=== PATIENT | male | born 1945 | race Caucasian/White ===

== ENCOUNTER → 2023-03-26 | Outpatient (CLI) | payer MEDICARE ==
[2023-03-26 10:36] LABS: BASO # 0.1 10^3/uL (0.0-0.2); BASO % 1.2 % (0.0-1.0); EOS # 0.2 10^3/uL (0.0-0.5); EOS % 3.1 % (0.0-3.0); HEMOGLOBIN 13.9 g/dl (13.5-17.5); LYMPH # 1.1 10^3/uL (1.5-5.0); MEAN CORPUSCULAR HEMOGLOBIN 33.9 pg (27.0-33.0); MEAN CORPUSCULAR HGB CONC 32.3 g/dl (32.0-36.5); MEAN CORPUSCULAR VOLUME 104.9 fl (80.0-96.0); MONO # 0.7 10^3/uL (0.0-0.8); MONO % 14.2 % (2.0-8.0); NEUTROPHILS % 59.3 % (36.0-66.0); PLATELET COUNT, AUTOMATED 129 10^3/uL (150-450); WHITE BLOOD COUNT 5.1 10^3/uL (4.0-10.0)
[2023-03-26 10:57] LABS: ALBUMIN 3.2 G/DL (3.2-5.2); ALKALINE PHOSPHATASE 215 U/L (46-116); ALT/SGPT 38 U/L (7.0-40); AST/SGOT 48 U/L (<34); BILIRUBIN,TOTAL 1.2 MG/DL (0.3-1.2); BLOOD UREA NITROGEN 23 MG/DL (9-23); CALCIUM LEVEL 9.5 MG/DL (8.3-10.6); CARBON DIOXIDE LEVEL 27 MMOL/L (20-31); CHLORIDE LEVEL 106 MMOL/L (98-107); CHOLESTEROL LEVEL 160 MG/DL (<200); CHOLESTEROL RISK RATIO 2.08 (<5); CREATININE FOR GFR 1.21 MG/DL (0.70-1.30); GLOMERULAR FILTRATION RATE > 60.0 (>42); GLUCOSE, FASTING 189 MG/DL (74-106); HDL CHOLESTEROL 76.8 MG/DL (>40); LDL CHOLESTEROL 72.4 MG/DL (<100); NON-HDL-C 83.2 MG/DL; POTASSIUM SERUM 4.3 MMOL/L (3.5-5.1); SODIUM LEVEL 134 MMOL/L (136-145); TOTAL PROTEIN 7.4 G/DL (5.7-8.2); TRIGLYCERIDES LEVEL 54 MG/DL (<150)
[2023-03-26 10:59] LABS: THYROID STIMULATING HORMONE 7.479 uIU/ML (0.55-4.78)
[2023-03-26 11:07] LABS: CREATININE, URINE 106.3 MG/DL; CREATININE,RANDOM URINE 106.3 MG/DL; MAU/CREAT RATIO 41.3 MCG/MG (0.0-30.0)
[2023-03-26 11:16] LABS: HEMOGLOBIN A1c 7.9 % (4.0-6.0)
== END ==
LOC: M LAB 09:43
PROVIDERS: ATTEND Family Medicine
DX: E11.69 Type 2 diabetes mellitus with other specified complication (principal)

== ENCOUNTER → 2023-03-30 | Outpatient (CLI) | payer MEDICARE ==
[2023-03-30 15:30] LABS: BASO # 0.1 10^3/uL (0.0-0.2); BASO % 1.4 % (0.0-1.0); EOS # 0.2 10^3/uL (0.0-0.5); EOS % 3.8 % (0.0-3.0); HEMATOCRIT 40.6 % (42.0-52.0); HEMOGLOBIN 13.4 g/dl (13.5-17.5); LYMPH # 1.1 10^3/uL (1.5-5.0); LYMPH % 22.1 % (24.0-44.0); MEAN CORPUSCULAR HEMOGLOBIN 33.7 pg (27.0-33.0); MONO # 0.6 10^3/uL (0.0-0.8); MONO % 12.5 % (2.0-8.0); PLATELET COUNT, AUTOMATED 120 10^3/uL (150-450); RED BLOOD COUNT 3.98 10^6/uL (4.30-6.10)
[2023-03-30 15:54] LABS: LIPASE 33 U/L (12-53)
[2023-03-30 15:57] LABS: ALBUMIN 3.3 G/DL (3.2-5.2); ALKALINE PHOSPHATASE 189 U/L (46-116); ALT/SGPT 37 U/L (7.0-40); AST/SGOT 47 U/L (<34); BLOOD UREA NITROGEN 24 MG/DL (9-23); CALCIUM LEVEL 8.8 MG/DL (8.3-10.6); CARBON DIOXIDE LEVEL 26 MMOL/L (20-31); CHLORIDE LEVEL 106 MMOL/L (98-107); CREATININE FOR GFR 1.21 MG/DL (0.70-1.30); GLOMERULAR FILTRATION RATE > 60.0 (>42); GLUCOSE, FASTING 221 MG/DL (74-106); RHEUMATOID FACTOR QUANT < 3.5 IU/ML (<14); SODIUM LEVEL 138 MMOL/L (136-145); TOTAL PROTEIN 7.4 G/DL (5.7-8.2)
[2023-03-31 16:55] LABS: CRYOGLOBULINS NEGATIVE (NEGATIVE)
== END ==
LOC: M LAB 14:04
PROVIDERS: ATTEND Ophthalmology Retina Specialist
DX: H34.9 Unspecified retinal vascular occlusion (principal)

== ENCOUNTER → 2023-05-15 | Outpatient (CLI) | payer MEDICARE ==
[2023-05-15 11:33] LABS: FREE T3 2.9 PG/ML (2.3-4.2); FREE T4 0.8 NG/DL (0.89-1.76)
== END ==
LOC: M LAB 10:09
PROVIDERS: ATTEND Family Medicine
DX: E07.9 Disorder of thyroid, unspecified (principal)

== ENCOUNTER → 2023-07-23 | Outpatient (CLI) | payer MEDICARE ==
[~2023-07-23] MED LIST: AMLO25TA PO; FERR325T3 PO; FOLI1TAB11 PO; FURO20TA2 PO; LEVO50TA5 PO; METF-838 PO; PANT40TA29 PO; SPIR-10 PO; THIA100TA PO
[2023-07-23 15:34] LABS: BASO # 0.1 10^3/uL (0.0-0.2); EOS # 0.3 10^3/uL (0.0-0.5); EOS % 4.3 % (0.0-3.0); HEMOGLOBIN 10.2 g/dl (13.5-17.5); LYMPH # 1.2 10^3/uL (1.5-5.0); LYMPH % 20.2 % (24.0-44.0); MEAN CORPUSCULAR HEMOGLOBIN 27.5 pg (27.0-33.0); MEAN CORPUSCULAR HGB CONC 30.9 g/dl (32.0-36.5); MEAN CORPUSCULAR VOLUME 88.9 fl (80.0-96.0); MONO # 0.6 10^3/uL (0.0-0.8); MONO % 10.4 % (2.0-8.0); NEUTROPHILS # 3.9 10^3/uL (1.5-8.5); NEUTROPHILS % 63.8 % (36.0-66.0); PLATELET COUNT, AUTOMATED 159 10^3/uL (150-450); RED BLOOD COUNT 3.71 10^6/uL (4.30-6.10); WHITE BLOOD COUNT 6.1 10^3/uL (4.0-10.0)
[2023-07-23 15:47] LABS: APPEARANCE, URINE CLEAR (CLEAR); BACTERIA, URINE AUTO NEGATIVE (NEGATIVE); BILIRUBIN, URINE AUTO NEGATIVE (NEGATIVE); BLOOD, URINE BLOOD NEGATIVE (NEGATIVE); COLOR, URINE YELLOW (YELLOW); GLUCOSE, URINE (UA) AUTO NEGATIVE (NEGATIVE); KETONE, URINE AUTO NEGATIVE (NEGATIVE); LEUKOCYTE ESTERASE, URINE AUTO NEGATIVE (NEGATIVE); MUCUS, URINE SMALL (NEGATIVE); NITRITE, URINE AUTO NEGATIVE (NEGATIVE); PROTEIN, URINE AUTO NEGATIVE (NEGATIVE); RBC, URINE AUTO 0 /HPF (0-3); SPECIFIC GRAVITY URINE AUTO 1.019 (1.002-1.035); SQUAMOUS EPITHELIAL CELL UR AU 3 /HPF (0-6); UROBILINOGEN, URINE AUTO 0.2 mg/dL (0.0-2.0); WBC, URINE AUTO 2 /HPF (0-3)
[2023-07-23 15:51] LABS: TOTAL PROTEIN,RANDOM URINE 18.9 MG/DL (0.0-14.0)
[2023-07-23 15:55] LABS: CREATININE,RANDOM URINE 168.5 MG/DL
[2023-07-23 15:56] LABS: C REACTIVE PROTEIN QUANTITATIV < 0.40 MG/DL (<1.0)
[2023-07-23 15:57] LABS: CPK CREATINE PHOSPHOKINASE 106 U/L (46-171); LDH LACTATE DEHYDROGENASE 154 U/L (120-246)
[2023-07-23 15:58] LABS: ALKALINE PHOSPHATASE 174 U/L (46-116); ALT/SGPT 23 U/L (7.0-40); AST/SGOT 34 U/L (<34); BILIRUBIN,TOTAL 0.5 MG/DL (0.3-1.2); BLOOD UREA NITROGEN 26 MG/DL (9-23); CARBON DIOXIDE LEVEL 27 MMOL/L (20-31); CHLORIDE LEVEL 104 MMOL/L (98-107); COMPLEMENT C4 18.9 MG/DL (12-36); CREATININE FOR GFR 1.59 MG/DL (0.70-1.30); GLOMERULAR FILTRATION RATE 45.1 (>42); GLUCOSE, FASTING 185 MG/DL (74-106); POTASSIUM SERUM 4.3 MMOL/L (3.5-5.1); SODIUM LEVEL 139 MMOL/L (136-145); TOTAL PROTEIN 7.2 G/DL (5.7-8.2)
[2023-07-23 17:18] LABS: ERYTHROCYTE SEDIMENTATION RATE 55 mm/hr (0-20)
[2023-07-27 15:07] LABS: ALDOLASE 3.4 U/L (3.3-10.3); COMPLEMENT TOTAL (CH50) > 60 U/mL (>41)
== END ==
LOC: M LAB 14:34
PROVIDERS: ATTEND Internal Medicine Rheumatology
DX: R76.8 Other specified abnormal immunological findings in serum (principal); H35.9 Unspecified retinal disorder

== ENCOUNTER 2023-10-19 06:03 | Day surgery (SDC) | payer MEDICARE ==
[~2023-10-19] VITALS: Ht 180.3 cm; Wt 84.5 kg
[~2023-10-19 06:03] MED LIST changes: +CYCLOPENTOLATE 1% OPHTH SOLN 2ML BTL OD SCH; +FLURBIPROFEN 0.03% OPHTH SOLN 2.5 ML OD SCH; +PHENYLEPHRINE 2.5% OPHTH SOL 2ML OD SCH; +TETRACAINE 0.5% OPHTH SOLN 4ML OD SCH
[2023-10-19] MEDS ORDERED: LIDOCAINE 1% SDV 5ML VIAL As Ordered ONE (06:47)
[2023-10-19] MEDS ORDERED: CEFUROXIME 1MG/0.1ML INTRACAMERAL INJ As Ordered ONE (06:48)
[2023-10-19] MEDS ORDERED: LR 1,000 ML IV SCH (07:00)
[2023-10-19] MEDS ORDERED: MIDAZOLAM INJ 2MG/2ML VIAL As Ordered ONE (07:04)
[2023-10-19 08:08] VITALS: BP 143/66; TEMP 97.5; O2SAT 99
== END 2023-10-19 08:20 | disposition home or self-care (01) ==
LOC: M SDC 06:03
PROVIDERS: ATTEND Ophthalmology
DX: H25.11 Age-related nuclear cataract, right eye (principal); E11.9 Type 2 diabetes mellitus without complications; E03.9 Hypothyroidism, unspecified; K76.9 Liver disease, unspecified; Z79.899 Other long term (current) drug therapy; Z87.891 Personal history of nicotine dependence
CPT/HCPCS: 66984; J0697; J2250; V2632

== ENCOUNTER 2023-11-09 06:07 | Day surgery (SDC) | payer MEDICARE ==
[~2023-11-09] VITALS: Ht 180.3 cm; Wt 83.6 kg
[~2023-11-09 06:07] MED LIST changes: -CYCLOPENTOLATE 1% OPHTH SOLN 2ML BTL OD SCH; -FLURBIPROFEN 0.03% OPHTH SOLN 2.5 ML OD SCH; +LASI20TA3 PO; -PHENYLEPHRINE 2.5% OPHTH SOL 2ML OD SCH; -TETRACAINE 0.5% OPHTH SOLN 4ML OD SCH
[2023-11-09] MEDS: TETRACAINE 0.5% OPHTH SOLN 4ML OS SCH (06:58)
[2023-11-09] MEDS: PHENYLEPHRINE 2.5% OPHTH SOL 2ML OS SCH (06:58)
[2023-11-09] MEDS: FLURBIPROFEN 0.03% OPHTH SOLN 2.5 ML OS SCH (06:58)
[2023-11-09] MEDS: CYCLOPENTOLATE 1% OPHTH SOLN 2ML BTL OS SCH (06:59)
[2023-11-09] MEDS ORDERED: LR 1,000 ML IV SCH (07:00)
[2023-11-09] MEDS ORDERED: INSULIN LISPRO (NovoLOG) PER UNIT SC PRN (07:10)
[2023-11-09] MEDS: LIDOCAINE 1% SDV 5ML VIAL As Ordered ONE (07:33)
[2023-11-09] MEDS ORDERED: MIDAZOLAM 5MG/ML 1ML VIAL As Ordered ONE (07:37)
[2023-11-09] MEDS: CEFUROXIME 1MG/0.1ML INTRACAMERAL INJ As Ordered ONE (07:44)
[2023-11-09 07:55] VITALS: BP 142/70; TEMP 97.5; O2SAT 98
== END 2023-11-09 08:08 | disposition home or self-care (01) ==
LOC: M SDC 06:07
PROVIDERS: ATTEND Ophthalmology
DX: E11.36 Type 2 diabetes mellitus with diabetic cataract (principal); H25.12 Age-related nuclear cataract, left eye; E03.9 Hypothyroidism, unspecified; K74.60 Unspecified cirrhosis of liver; Z79.890 Hormone replacement therapy; Z79.899 Other long term (current) drug therapy
CPT/HCPCS: 66984; J0697; J2250; V2632

== ENCOUNTER → 2023-12-14 | Outpatient (CLI) | payer MEDICARE ==
[2023-12-14 08:03] LABS: BASO # 0.1 10^3/uL (0.0-0.2); BASO % 1.1 % (0.0-1.0); EOS # 0.2 10^3/uL (0.0-0.5); EOS % 4.2 % (0.0-3.0); HEMATOCRIT 35.7 % (42.0-52.0); HEMOGLOBIN 11.6 g/dl (13.5-17.5); LYMPH # 1.1 10^3/uL (1.5-5.0); LYMPH % 19.4 % (24.0-44.0); MEAN CORPUSCULAR HEMOGLOBIN 31.3 pg (27.0-33.0); MEAN CORPUSCULAR HGB CONC 32.5 g/dl (32.0-36.5); MEAN CORPUSCULAR VOLUME 96.2 fl (80.0-96.0); MONO # 0.7 10^3/uL (0.0-0.8); MONO % 12.5 % (2.0-8.0); NEUTROPHILS # 3.5 10^3/uL (1.5-8.5); NEUTROPHILS % 62.4 % (36.0-66.0); PLATELET COUNT, AUTOMATED 197 10^3/uL (150-450); RED BLOOD COUNT 3.71 10^6/uL (4.30-6.10); WHITE BLOOD COUNT 5.7 10^3/uL (4.0-10.0)
[2023-12-14 08:38] LABS: PERCENT SATURATION 12.3 % (19.7-50.0)
[2023-12-14 08:39] LABS: ALBUMIN 2.6 G/DL (3.2-5.2); BILIRUBIN,TOTAL 0.7 MG/DL (0.3-1.2); CREATININE FOR GFR 1.33 MG/DL (0.70-1.30); GLOMERULAR FILTRATION RATE 55.4 (>42); POTASSIUM SERUM 4.6 MMOL/L (3.5-5.1); TOTAL PROTEIN 6.9 G/DL (5.7-8.2)
[2023-12-14 08:40] LABS: FREE T4 0.93 NG/DL (0.89-1.76)
[2023-12-14 08:41] LABS: FERRITIN 22.9 NG/ML (10.5-307.3); FREE T3 2.6 PG/ML (2.3-4.2); THYROID STIMULATING HORMONE 4.465 uIU/ML (0.55-4.78)
[2023-12-14 09:24] LABS: HEMOGLOBIN A1c 7.5 % (4.0-6.0)
== END ==
LOC: M LAB 07:12
PROVIDERS: ATTEND Family Medicine
DX: D64.9 Anemia, unspecified (principal); E07.9 Disorder of thyroid, unspecified; E11.69 Type 2 diabetes mellitus with other specified complication

== ENCOUNTER → 2023-12-30 | Outpatient (CLI) | payer MEDICARE | LOC: M RAD 11:51 | PROVIDERS: ATTEND Internal Medicine Gastroenterology | DX: C83.81 Other non-follicular lymphoma, lymph nodes of head, face, and neck (principal) ==

== ENCOUNTER → 2024-01-07 | Outpatient (CLI) | payer MEDICARE | LOC: M WUC 15:12 | PROVIDERS: ATTEND Nurse Practitioner Family | DX: R07.82 Intercostal pain (principal); Z87.81 Personal history of (healed) traumatic fracture ==

== ENCOUNTER → 2024-01-25 | Outpatient (CLI) | payer MEDICARE ==
[~2024-01-25] MED LIST changes: +LIDOCAINE 1% MDV 20ML VIAL As Ordered ONE
[2024-01-25 09:15] VITALS: TEMP 97.7
[2024-01-25 10:48] VITALS: BP 138/64; O2SAT 98
== END ==
LOC: M IRPRO 09:04
PROVIDERS: ATTEND Otolaryngology
DX: R22.1 Localized swelling, mass and lump, neck (principal)

== ENCOUNTER → 2024-02-08 | Outpatient (CLI) | payer MEDICARE ==
[~2024-02-08] MED LIST changes: -LIDOCAINE 1% MDV 20ML VIAL As Ordered ONE
[2024-02-08 07:46] LABS: BASO % 0.6 % (0.0-1.0); EOS # 0.1 10^3/uL (0.0-0.5); EOS % 2.7 % (0.0-3.0); HEMATOCRIT 33.3 % (42.0-52.0); HEMOGLOBIN 10.8 g/dl (13.5-17.5); LYMPH # 0.7 10^3/uL (1.5-5.0); LYMPH % 14.4 % (24.0-44.0); MEAN CORPUSCULAR HEMOGLOBIN 30.9 pg (27.0-33.0); MEAN CORPUSCULAR HGB CONC 32.4 g/dl (32.0-36.5); MEAN CORPUSCULAR VOLUME 95.4 fl (80.0-96.0); MONO # 0.5 10^3/uL (0.0-0.8); MONO % 10.7 % (2.0-8.0); NEUTROPHILS # 3.4 10^3/uL (1.5-8.5); NEUTROPHILS % 71.4 % (36.0-66.0); PLATELET COUNT, AUTOMATED 194 10^3/uL (150-450); RED BLOOD COUNT 3.49 10^6/uL (4.30-6.10); WHITE BLOOD COUNT 4.8 10^3/uL (4.0-10.0)
[2024-02-08 07:52] LABS: APPEARANCE, URINE HAZY (CLEAR); BACTERIA, URINE AUTO 1+ (NEGATIVE); BILIRUBIN, URINE AUTO NEGATIVE (NEGATIVE); BLOOD, URINE BLOOD NEGATIVE (NEGATIVE); COLOR, URINE YELLOW (YELLOW); GLUCOSE, URINE (UA) AUTO NEGATIVE (NEGATIVE); KETONE, URINE AUTO NEGATIVE (NEGATIVE); LEUKOCYTE ESTERASE, URINE AUTO TRACE (NEGATIVE); NITRITE, URINE AUTO NEGATIVE (NEGATIVE); PROTEIN, URINE AUTO 1+ mg/dL (NEGATIVE); RBC, URINE AUTO 0 /HPF (0-3); SPECIFIC GRAVITY URINE AUTO 1.024 (1.002-1.035); SQUAMOUS EPITHELIAL CELL UR AU 6 /HPF (0-6); WBC, URINE AUTO 15 /HPF (0-3)
[2024-02-08 07:59] LABS: ERYTHROCYTE SEDIMENTATION RATE 76 mm/hr (0-20)
[2024-02-08 08:06] LABS: TOTAL PROTEIN,RANDOM URINE 47.4 MG/DL (0.0-14.0)
[2024-02-08 08:11] LABS: C REACTIVE PROTEIN QUANTITATIV 2.9 MG/DL (<1.0); CREATININE,RANDOM URINE 228.6 MG/DL
[2024-02-08 08:29] LABS: COMPLEMENT C4 23.6 MG/DL (12-36)
[2024-02-08 08:30] LABS: ALBUMIN 2.5 G/DL (3.2-5.2); BILIRUBIN,TOTAL 0.7 MG/DL (0.3-1.2); CALCIUM LEVEL 8.7 MG/DL (8.3-10.6); CREATININE FOR GFR 1.42 MG/DL (0.70-1.30); GLOMERULAR FILTRATION RATE 51.3 (>42); POTASSIUM SERUM 4.7 MMOL/L (3.5-5.1); TOTAL PROTEIN 6.9 G/DL (5.7-8.2)
== END ==
LOC: M LAB 07:04
PROVIDERS: ATTEND Internal Medicine Rheumatology
DX: R76.8 Other specified abnormal immunological findings in serum (principal); H35.9 Unspecified retinal disorder

== ENCOUNTER → 2024-02-22 | Outpatient (CLI) | payer MEDICARE ==
[2024-02-22 11:43] LABS: BASO # 0.1 10^3/uL (0.0-0.2); EOS # 0.1 10^3/uL (0.0-0.5); EOS % 2.1 % (0.0-3.0); HEMOGLOBIN 10.8 g/dl (13.5-17.5); LYMPH # 0.9 10^3/uL (1.5-5.0); MEAN CORPUSCULAR HEMOGLOBIN 30.6 pg (27.0-33.0); MEAN CORPUSCULAR HGB CONC 32.7 g/dl (32.0-36.5); MEAN CORPUSCULAR VOLUME 93.5 fl (80.0-96.0); MONO # 0.7 10^3/uL (0.0-0.8); NEUTROPHILS # 3.4 10^3/uL (1.5-8.5); NEUTROPHILS % 65.3 % (36.0-66.0); PLATELET COUNT, AUTOMATED 207 10^3/uL (150-450); RED BLOOD COUNT 3.53 10^6/uL (4.30-6.10); WHITE BLOOD COUNT 5.1 10^3/uL (4.0-10.0)
[2024-02-22 12:14] LABS: ALBUMIN 2.5 G/DL (3.2-5.2); BILIRUBIN,TOTAL 0.9 MG/DL (0.3-1.2); CALCIUM LEVEL 8.8 MG/DL (8.3-10.6); CREATININE FOR GFR 1.57 MG/DL (0.70-1.30); GLOMERULAR FILTRATION RATE 45.7 (>42); HEMOGLOBIN A1c 6.8 % (4.0-6.0); POTASSIUM SERUM 4.6 MMOL/L (3.5-5.1); TOTAL PROTEIN 7.1 G/DL (5.7-8.2)
== END ==
LOC: M EKG 11:02
PROVIDERS: ATTEND Family Medicine
DX: Z01.818 Encounter for other preprocedural examination (principal); I45.19 Other right bundle-branch block; R94.31 Abnormal electrocardiogram [ECG] [EKG]; Z79.899 Other long term (current) drug therapy

== ENCOUNTER 2024-03-03 06:08 | Day surgery (SDC) | payer MEDICARE ==
[~2024-03-03] VITALS: Ht 180.3 cm; Wt 79.7 kg
[2024-03-03] MEDS ORDERED: fentaNYL 100 MCG/2 ML INJECTION As Ordered ONE (06:54)
[2024-03-03] MEDS ORDERED: propofoL 200 MG/20 ML VIAL As Ordered ONE (06:55)
[2024-03-03] MEDS ORDERED: LR 1,000 ML IV SCH ×2 (07:05→08:40)
[2024-03-03] MEDS ORDERED: ROCURONIUM BROMIDE 50MG/5ML VIAL As Ordered ONE (07:21)
[2024-03-03] MEDS ORDERED: ePHEDrine SULFATE 25 MG/5 ML(5MG/ML) SYRINGE As Ordered ONE (07:48)
[2024-03-03] MEDS ORDERED: PHENYLephrine 500MCG 5ML (100MCG/ML) SYRINGE As Ordered ONE (08:04)
[2024-03-03] MEDS ORDERED: SUCCINYLCHOLINE 100MG/5ML SYRINGE As Ordered ONE (08:05)
[2024-03-03] MEDS ORDERED: LIDOCAINE 2% 100MG/5ML SDV (FOR ANES.) As Ordered ONE (08:09)
[2024-03-03] MEDS ORDERED: ONDANSETRON 4MG 2ML VIAL As Ordered ONE (08:09)
[2024-03-03] MEDS: BACITRACIN OINTMENT 30GM TUBE As Ordered ONE (08:21)
[2024-03-03] MEDS ORDERED: HYDROMORPHONE HCL 0.5 MG/ 0.5 ML SYRINGE IV PRN (08:40)
[2024-03-03] MEDS ORDERED: fentaNYL 100 MCG/2 ML INJECTION IV PRN (08:40)
[2024-03-03] MEDS ORDERED: oxyCODONE 5MG TAB PO PRN (08:40)
[2024-03-03] MEDS ORDERED: ONDANSETRON 4MG 2ML VIAL IV PRN (08:40)
[2024-03-03] MEDS: LIDOCAINE W/EPINEPHRINE 1% 20ML VIAL As Ordered ONE (08:44)
[2024-03-03 09:26] VITALS: BP 132/64; TEMP 97; O2SAT 99
== END 2024-03-03 09:42 | disposition home or self-care (01) ==
LOC: M SDC 06:08
PROVIDERS: ATTEND Otolaryngology
DX: C79.89 Secondary malignant neoplasm of other specified sites (principal); C61 Malignant neoplasm of prostate; E11.9 Type 2 diabetes mellitus without complications; E03.9 Hypothyroidism, unspecified; I10 Essential (primary) hypertension; Z79.899 Other long term (current) drug therapy; Z79.890 Hormone replacement therapy; K74.60 Unspecified cirrhosis of liver; Z87.891 Personal history of nicotine dependence
CPT/HCPCS: 21556; 88307; J0330; J1100; J2371; J2405; J3010

== ENCOUNTER → 2024-03-04 | Outpatient (REF) | payer MEDICARE ==
[2024-03-04 18:02] LABS: APPEARANCE, URINE CLEAR (CLEAR); BACTERIA, URINE AUTO NEGATIVE (NEGATIVE); BILIRUBIN, URINE AUTO NEGATIVE (NEGATIVE); BLOOD, URINE BLOOD NEGATIVE (NEGATIVE); COLOR, URINE YELLOW (YELLOW); GLUCOSE, URINE (UA) AUTO NEGATIVE (NEGATIVE); KETONE, URINE AUTO NEGATIVE (NEGATIVE); LEUKOCYTE ESTERASE, URINE AUTO NEGATIVE (NEGATIVE); NITRITE, URINE AUTO NEGATIVE (NEGATIVE); PROTEIN, URINE AUTO NEGATIVE (NEGATIVE); RBC, URINE AUTO 0 /HPF (0-3); SPECIFIC GRAVITY URINE AUTO 1.013 (1.002-1.035); SQUAMOUS EPITHELIAL CELL UR AU 0 /HPF (0-6); WBC, URINE AUTO 0 /HPF (0-3)
== END ==
LOC: M SFHCRHEU 12:14
PROVIDERS: ATTEND Internal Medicine Rheumatology
DX: R79.82 Elevated C-reactive protein (CRP) (principal); Z79.899 Other long term (current) drug therapy

== ENCOUNTER 2024-03-14 17:54 | Inpatient (IN) | payer MEDICARE ==
[~2024-03-14] VITALS: Ht 180.3 cm; Wt 72.2 kg
[2024-03-14 19:11] LABS: BASO # 0.1 10^3/uL (0.0-0.2); BASO % 0.8 % (0.0-1.0); EOS # 0.1 10^3/uL (0.0-0.5); EOS % 1.8 % (0.0-3.0); HEMATOCRIT 29.8 % (42.0-52.0); HEMOGLOBIN 9.9 g/dl (13.5-17.5); LYMPH # 0.8 10^3/uL (1.5-5.0); LYMPH % 12.9 % (24.0-44.0); MEAN CORPUSCULAR HEMOGLOBIN 30.5 pg (27.0-33.0); MEAN CORPUSCULAR HGB CONC 33.2 g/dl (32.0-36.5); MEAN CORPUSCULAR VOLUME 91.7 fl (80.0-96.0); MONO # 0.6 10^3/uL (0.0-0.8); MONO % 9.2 % (2.0-8.0); NEUTROPHILS # 4.6 10^3/uL (1.5-8.5); NEUTROPHILS % 75.1 % (36.0-66.0); PLATELET COUNT, AUTOMATED 226 10^3/uL (150-450); RED BLOOD COUNT 3.25 10^6/uL (4.30-6.10); WHITE BLOOD COUNT 6.1 10^3/uL (4.0-10.0)
[2024-03-14 19:19] LABS: INR 1.15; PROTHROMBIN TIME 14.4 SECONDS (12.5-14.5)
[2024-03-14 19:31] LABS: ALBUMIN 2.5 G/DL (3.2-5.2); BILIRUBIN,DIRECT 0.4 MG/DL (<0.4); BILIRUBIN,TOTAL 0.9 MG/DL (0.3-1.2); CALCIUM LEVEL 8.5 MG/DL (8.3-10.6); CREATININE FOR GFR 1.44 MG/DL (0.70-1.30); GLOMERULAR FILTRATION RATE 50.5 (>42); POTASSIUM SERUM 4.2 MMOL/L (3.5-5.1); TOTAL PROTEIN 7.2 G/DL (5.7-8.2)
[2024-03-14 19:32] LABS: ALBUMIN 2.5 G/DL (3.2-5.2); BILIRUBIN,DIRECT 0.4 MG/DL (<0.4); BILIRUBIN,TOTAL 0.8 MG/DL (0.3-1.2); TOTAL PROTEIN 7.2 G/DL (5.7-8.2)
[2024-03-14] MEDS ORDERED: THIA100TA PO (23:50)
[2024-03-14] MEDS ORDERED: FOLI1TAB11 PO (23:50)
[2024-03-14] MEDS ORDERED: HOME MED LIST COMPLETE! XX SCH (23:55)
[2024-03-15] VITALS (9 sets, daily range): BP systolic 94–150; BP diastolic 47–70; TEMP 97.3–97.7; O2SAT 96–99
[2024-03-15] MEDS: LEVOTHYROXINE 50MCG TABLET (0.05MG) PO SCH (05:38)
[2024-03-15] MEDS: SPIRONOLACTONE 25 MG TAB PO SCH (08:40)
[2024-03-15] MEDS: FOLIC ACID 1MG TAB PO SCH (08:41)
[2024-03-15] MEDS: FUROSEMIDE 20 MG TAB PO SCH (08:41)
[2024-03-15] MEDS: PANTOPRAZOLE 40MG TAB (PROTONIX) PO SCH (08:41)
[2024-03-15] MEDS: LACTULOSE 20GM/30ML SYRUP UDC PO SCH ×3 (08:41→13:29)
[2024-03-15] MEDS: THIAMINE 100 MG TAB PO SCH (08:42)
[2024-03-15 11:22] LABS: BASO % 0.8 % (0.0-1.0); EOS # 0.1 10^3/uL (0.0-0.5); EOS % 1.4 % (0.0-3.0); HEMATOCRIT 28.9 % (42.0-52.0); HEMOGLOBIN 9.5 g/dl (13.5-17.5); LYMPH # 0.6 10^3/uL (1.5-5.0); LYMPH % 11.4 % (24.0-44.0); MEAN CORPUSCULAR HEMOGLOBIN 29.9 pg (27.0-33.0); MEAN CORPUSCULAR HGB CONC 32.9 g/dl (32.0-36.5); MEAN CORPUSCULAR VOLUME 90.9 fl (80.0-96.0); MONO # 0.5 10^3/uL (0.0-0.8); MONO % 9.1 % (2.0-8.0); NEUTROPHILS # 3.9 10^3/uL (1.5-8.5); NEUTROPHILS % 76.9 % (36.0-66.0); PLATELET COUNT, AUTOMATED 206 10^3/uL (150-450); RED BLOOD COUNT 3.18 10^6/uL (4.30-6.10); WHITE BLOOD COUNT 5.1 10^3/uL (4.0-10.0)
[2024-03-15 11:45] LABS: CREATININE FOR GFR 1.32 MG/DL (0.70-1.30); GLOMERULAR FILTRATION RATE 55.8 (>42); POTASSIUM SERUM 4.3 MMOL/L (3.5-5.1)
[2024-03-15 15:33] LABS: APPEARANCE, BODY FLUID CLEAR (CLEAR); ASCITES FL COLOR YELLOW (COLORLESS); SOURCE, BODY FLUID ASCITES
[2024-03-15 19:25] LABS: SOURCE, BODY FLUID ALBUMIN ASCITES
[2024-03-15 19:30] LABS: SOURCE, BODY FLUID GLUCOSE ASCITES
[2024-03-15 19:32] LABS: SOURCE, BODY FLUID TOT PROTEIN ASCITES; TOTAL PROTEIN, BODY FLUID 2.3 G/DL (NOT ESTABLISHED)
[2024-03-16] VITALS (7 sets, daily range): BP systolic 88–115; BP diastolic 44–54; TEMP 97.3–97.5; O2SAT 97–100
[2024-03-16] MEDS: MIDODRINE 2.5 MG TAB PO ONE (04:53)
[2024-03-16 06:35] LABS: HEMATOCRIT 32.3 % (42.0-52.0); HEMOGLOBIN 10.7 g/dl (13.5-17.5); MEAN CORPUSCULAR HGB CONC 33.1 g/dl (32.0-36.5); MEAN CORPUSCULAR VOLUME 90.5 fl (80.0-96.0); PLATELET COUNT, AUTOMATED 235 10^3/uL (150-450); RED BLOOD COUNT 3.57 10^6/uL (4.30-6.10); WHITE BLOOD COUNT 5.9 10^3/uL (4.0-10.0)
[2024-03-16 06:47] LABS: ALBUMIN 2.7 G/DL (3.2-5.2); BILIRUBIN,TOTAL 1.2 MG/DL (0.3-1.2); CALCIUM LEVEL 8.7 MG/DL (8.3-10.6); CREATININE FOR GFR 1.29 MG/DL (0.70-1.30); GLOMERULAR FILTRATION RATE 57.3 (>42); POTASSIUM SERUM 4.3 MMOL/L (3.5-5.1); TOTAL PROTEIN 6.2 G/DL (5.7-8.2)
[2024-03-16] MEDS ORDERED: LACT20EL PO (10:19)
== END 2024-03-16 14:04 | disposition home or self-care (01) | DRG 433 ==
LOC: M ED 17:54 → M ED INP 03-15 00:33 → M MSPAV 03-15 01:31
PROVIDERS: ADMIT Preventive Medicine Undersea and Hyperbaric Medicine; ATTEND Internal Medicine Nephrology
PROC: 0W9G3ZZ Drainage of Peritoneal Cavity, Percutaneous Approach (ICD-10-PCS; principal; 2024-03-15 14:30)
DX: K74.60 Unspecified cirrhosis of liver (principal); R18.8 Other ascites; N18.30 Chronic kidney disease, stage 3 unspecified; E03.9 Hypothyroidism, unspecified; E11.22 Type 2 diabetes mellitus with diabetic chronic kidney disease; K72.90 Hepatic failure, unspecified without coma; C61 Malignant neoplasm of prostate; E11.319 Type 2 diabetes mellitus with unspecified diabetic retinopathy without macular edema; B18.2 Chronic viral hepatitis C; Z98.41 Cataract extraction status, right eye; Z98.42 Cataract extraction status, left eye; Z79.899 Other long term (current) drug therapy

== ENCOUNTER → 2024-03-24 | Outpatient (CLI) | payer MEDICARE ==
[~2024-03-24] MED LIST changes: +DARO300T PO; +GASTROGRAFIN SOLUTION 30ML As Ordered ONE; +ISOVUE-370 76% 100ML VIAL As Ordered ONE; +LACT20EL PO
== END ==
LOC: M RAD 15:26
PROVIDERS: ATTEND Specialist
DX: C61 Malignant neoplasm of prostate (principal); C79.51 Secondary malignant neoplasm of bone; R91.1 Solitary pulmonary nodule; R59.0 Localized enlarged lymph nodes
CPT/HCPCS: 71260; 74177; Q9963; Q9967

== ENCOUNTER 2024-04-04 07:46 | Inpatient (IN) | payer MEDICARE ==
[~2024-04-04] VITALS: Ht 180.3 cm; Wt 80.0 kg
[~2024-04-04 07:46] MED LIST changes: -GASTROGRAFIN SOLUTION 30ML As Ordered ONE; -ISOVUE-370 76% 100ML VIAL As Ordered ONE
[2024-04-04 10:48] LABS: HEMATOCRIT 33.6 % (42.0-52.0); HEMOGLOBIN 11.4 g/dl (13.5-17.5); MEAN CORPUSCULAR HEMOGLOBIN 29.5 pg (27.0-33.0); MEAN CORPUSCULAR HGB CONC 33.9 g/dl (32.0-36.5); MEAN CORPUSCULAR VOLUME 86.8 fl (80.0-96.0); PLATELET COUNT, AUTOMATED 153 10^3/uL (150-450); RED BLOOD COUNT 3.87 10^6/uL (4.30-6.10)
[2024-04-04 10:50] LABS: INR 1.39; PROTHROMBIN TIME 16.7 SECONDS (12.5-14.5)
[2024-04-04 11:00] LABS: ALBUMIN 1.9 G/DL (3.2-5.2); BILIRUBIN,DIRECT 0.8 MG/DL (<0.4); BILIRUBIN,TOTAL 1.4 MG/DL (0.3-1.2); CALCIUM LEVEL 7.8 MG/DL (8.3-10.6); CREATININE FOR GFR 4.38 MG/DL (0.70-1.30); POTASSIUM SERUM 5.8 MMOL/L (3.5-5.1); TOTAL PROTEIN 6.3 G/DL (5.7-8.2)
[2024-04-04 11:03] LABS: ANISOCYTOSIS 1+; ATYPICAL LYMPH 2 % (0-5); LYMPHOCYTES 8 % (16-44); MONOCYTES 5 % (0-5); NEUTROPHILS 85 % (28-66); PLATELET ESTIMATE NORMAL (NORMAL)
[2024-04-04] MEDS: PATIROMER SORBITEX CALCIUM 8.4 GM POWDER PACKET (VELTASSA) PO ONE (13:45)
[2024-04-04] MEDS ORDERED: MAALOX 30 ML SUSP *UDC PO PRN (13:55)
[2024-04-04] MEDS ORDERED: MOM 30ML SUSPENSION UDC PO PRN (13:55)
[2024-04-04] MEDS ORDERED: LACT20EL PO (14:03)
[2024-04-04] MEDS ORDERED: HOME MED LIST COMPLETE! XX SCH (14:05)
[2024-04-04] MEDS ORDERED: GLUCOSE 4 GM CHEW PO PRN (14:30)
[2024-04-04] MEDS ORDERED: GLUCAGON INJ 1MG VIAL SC PRN (14:30)
[2024-04-04] MEDS ORDERED: DEXTROSE 50% 50ML SYRINGE IV PRN (14:30)
[2024-04-04 15:07] VITALS: BP 134/70; TEMP 97.2; O2SAT 98
[2024-04-04 15:23] VITALS: BP 137/69; TEMP 97.2; O2SAT 98
[2024-04-04 15:45] LABS: C REACTIVE PROTEIN QUANTITATIV 24.6 MG/DL (<1.0)
[2024-04-04 15:51] VITALS: BP 128/71; TEMP 97.4; O2SAT 100
[2024-04-04 15:55] LABS: ERYTHROCYTE SEDIMENTATION RATE > 130 mm/hr (0-20)
[2024-04-04] MEDS: ALBUTEROL SULFATE 2.5MG/0.5ML INH NEB SOLN NEB ONE (15:55)
[2024-04-04] MEDS: LACTULOSE 20GM/30ML SYRUP UDC PO SCH (16:00)
[2024-04-04] MEDS: MIDODRINE 5 MG TAB PO SCH (16:00)
[2024-04-04] MEDS: cefTRIAXone SOD 2 GM in D5W MINI-BAG PLUS 50 ML IV SCH (16:43)
[2024-04-04] MEDS: INSULIN LISPRO (NovoLOG) PER UNIT SC SCH ×2 (18:25→20:06)
[2024-04-04 18:39] LABS: CALCIUM LEVEL 7.6 MG/DL (8.3-10.6); CREATININE FOR GFR 4.84 MG/DL (0.70-1.30); GLOMERULAR FILTRATION RATE 12.5 (>42); POTASSIUM SERUM 5.2 MMOL/L (3.5-5.1)
[2024-04-04 18:54] VITALS: BP 148/65; TEMP 98; O2SAT 100
[2024-04-04] MEDS: NS 1,000 ML IV SCH (19:52)
[2024-04-04 19:58] VITALS: BP 125/62; TEMP 97.6; O2SAT 98
[2024-04-04] MEDS: OCTREOTIDE ACETATE 100MCG/ML VIAL **SC ADMINISTRATION ONLY SC SCH (20:17)
[2024-04-04 23:45] LABS: APPEARANCE, URINE TURBID (CLEAR); BACTERIA, URINE AUTO 1+ (NEGATIVE); BILIRUBIN, URINE AUTO NEGATIVE (NEGATIVE); BLOOD, URINE BLOOD 3+ (NEGATIVE); COLOR, URINE AMBER (YELLOW); GLUCOSE, URINE (UA) AUTO NEGATIVE (NEGATIVE); KETONE, URINE AUTO NEGATIVE (NEGATIVE); LEUKOCYTE ESTERASE, URINE AUTO 3+ (NEGATIVE); NITRITE, URINE AUTO NEGATIVE (NEGATIVE); PROTEIN, URINE AUTO 3+ mg/dL (NEGATIVE); RBC, URINE AUTO 41 /HPF (0-3); SPECIFIC GRAVITY URINE AUTO 1.012 (1.002-1.035); SQUAMOUS EPITHELIAL CELL UR AU 1 /HPF (0-6); UROBILINOGEN, URINE AUTO 0.2 mg/dL (0.0-2.0); WBC, URINE AUTO TNTC /HPF (0-3)
[2024-04-04 23:56] LABS: SODIUM,RANDOM URINE 46 MMOL/L
[2024-04-05] VITALS (7 sets, daily range): BP systolic 104–136; BP diastolic 55–70; TEMP 96.4–98.6; O2SAT 95–99
[2024-04-05] MEDS: VANCOMYCIN HCL 750 MG, VIAL MATE ADAPTER 1 EACH in D5W 250 ML IV SCH (00:18)
[2024-04-05] MEDS ORDERED: VANCOMYCIN INTERMITTENT/PULSE DOSING BY CLINICAL PHARMACIST PER DOSING PROTOCOL XX SCH (02:00)
[2024-04-05 05:10] LABS: VANCOMYCIN RANDOM 23.9 UG/ML
[2024-04-05] MEDS: LEVOTHYROXINE 50MCG TABLET (0.05MG) PO SCH (05:42)
[2024-04-05 06:56] LABS: ALBUMIN 1.8 G/DL (3.2-5.2); BLOOD UREA NITROGEN 103 MG/DL (9-23); CALCIUM LEVEL 7.9 MG/DL (8.3-10.6); CARBON DIOXIDE LEVEL 19 MMOL/L (20-31); CHLORIDE LEVEL 94 MMOL/L (98-107); GLUCOSE, FASTING 303 MG/DL (74-106); POTASSIUM SERUM 5.5 MMOL/L (3.5-5.1); SODIUM LEVEL 123 MMOL/L (136-145)
[2024-04-05 07:01] LABS: BASO # 0.1 10^3/uL (0.0-0.2); BASO % 0.2 % (0.0-1.0); HEMATOCRIT 31.2 % (42.0-52.0); HEMOGLOBIN 10.6 g/dl (13.5-17.5); LYMPH # 1.9 10^3/uL (1.5-5.0); LYMPH % 8.2 % (24.0-44.0); MEAN CORPUSCULAR HEMOGLOBIN 29.3 pg (27.0-33.0); MEAN CORPUSCULAR VOLUME 86.2 fl (80.0-96.0); MONO # 0.7 10^3/uL (0.0-0.8); MONO % 2.9 % (2.0-8.0); NEUTROPHILS # 19.9 10^3/uL (1.5-8.5); NEUTROPHILS % 86.1 % (36.0-66.0); PLATELET COUNT, AUTOMATED 134 10^3/uL (150-450); RED BLOOD COUNT 3.62 10^6/uL (4.30-6.10); WHITE BLOOD COUNT 23.1 10^3/uL (4.0-10.0)
[2024-04-05 07:04] LABS: ALKALINE PHOSPHATASE 208 U/L (46-116); ALT/SGPT 14 U/L (7.0-40); AST/SGOT 24 U/L (<34); BILIRUBIN,TOTAL 1.3 MG/DL (0.3-1.2); CREATININE FOR GFR 5.21 MG/DL (0.70-1.30); GLOMERULAR FILTRATION RATE 11.5 (>42); MAGNESIUM LEVEL 2.3 MG/DL (1.8-2.4); TOTAL PROTEIN 5.7 G/DL (5.7-8.2)
[2024-04-05] MEDS: PANTOPRAZOLE 40MG TAB (PROTONIX) PO SCH (09:00)
[2024-04-05] MEDS: PIPERACILLIN/TAZOBACTAM SOD 4.5 GM in D5W MINI-BAG PLUS 50 ML IV SCH (09:01)
[2024-04-05] MEDS: HEPARIN SOD (PORCINE) 5000UNITS/ML 1ML VIAL/SYRINGE SC SCH (09:01)
[2024-04-05] MEDS: HumuLIN R (REGULAR) INSULIN (NovoLIN R) **100U/ML** PER UNIT IV STA (10:44)
[2024-04-05] MEDS ORDERED: HEPARIN 1,000UNITS/ML 10ML VIAL (FOR RADIOLOGY & DIALYSIS ONLY) IV PRN (11:20)
[2024-04-05] MEDS ORDERED: SODIUM CHLORIDE 0.9% 1000ML IV PRN (11:20)
[2024-04-05 12:06] LABS: HEPATITIS B SURFACE ANTIBODY NEGATIVE (POSITIVE)
[2024-04-05 12:18] LABS: HEPATITIS B SURFACE ANTIGEN NEGATIVE (NEGATIVE)
[2024-04-05 12:39] LABS: HEPATITIS B CORE ANTIBODY IGM NEGATIVE (NEGATIVE)
[2024-04-05 13:06] LABS: HEPATITIS C VIRUS ABY INDEX 2.06 INDEX (<0.8)
[2024-04-05] MEDS: HEPARIN 1,000UNITS/ML 10ML VIAL (FOR RADIOLOGY & DIALYSIS ONLY) XX SCH (15:59)
[2024-04-06] VITALS (33 sets, daily range): BP systolic 67–117; BP diastolic 38–58; TEMP 97.2–98.9; O2SAT 90–97
[2024-04-06 05:24] LABS: BASO % 0.2 % (0.0-1.0); EOS % 0.1 % (0.0-3.0); HEMATOCRIT 33.5 % (42.0-52.0); HEMOGLOBIN 11.2 g/dl (13.5-17.5); LYMPH # 1.3 10^3/uL (1.5-5.0); MEAN CORPUSCULAR HEMOGLOBIN 28.6 pg (27.0-33.0); MEAN CORPUSCULAR HGB CONC 33.4 g/dl (32.0-36.5); MEAN CORPUSCULAR VOLUME 85.7 fl (80.0-96.0); MONO # 0.7 10^3/uL (0.0-0.8); MONO % 3.6 % (2.0-8.0); NEUTROPHILS # 16.2 10^3/uL (1.5-8.5); NEUTROPHILS % 88.1 % (36.0-66.0); PLATELET COUNT, AUTOMATED 106 10^3/uL (150-450); RED BLOOD COUNT 3.91 10^6/uL (4.30-6.10); WHITE BLOOD COUNT 18.3 10^3/uL (4.0-10.0)
[2024-04-06 05:50] LABS: VANCOMYCIN RANDOM 13.9 UG/ML
[2024-04-06 05:51] LABS: CALCIUM LEVEL 7.3 MG/DL (8.3-10.6); CREATININE FOR GFR 4.27 MG/DL (0.70-1.30); GLOMERULAR FILTRATION RATE 14.4 (>42); MAGNESIUM LEVEL 2.2 MG/DL (1.8-2.4); POTASSIUM SERUM 4.7 MMOL/L (3.5-5.1)
[2024-04-06] MEDS ORDERED: HEPARIN 1,000UNITS/ML 10ML VIAL (FOR RADIOLOGY & DIALYSIS ONLY) IV PRN (06:00)
[2024-04-06] MEDS ORDERED: LIDOCAINE 1% SDV 5ML VIAL SC PRN (06:00)
[2024-04-06] MEDS ORDERED: SODIUM CHLORIDE 0.9% 1000ML IV PRN (06:00)
[2024-04-06] MEDS: VANCOMYCIN HCL 1,000 MG, VIAL MATE ADAPTER 1 EACH in D5W 250 ML IV ONE (06:01)
[2024-04-06] MEDS: HEPARIN 1,000UNITS/ML 10ML VIAL (FOR RADIOLOGY & DIALYSIS ONLY) XX SCH (11:23)
[2024-04-06] MEDS: ISOVUE-300 61% 100ML VIAL As Ordered ONE (12:50)
[2024-04-06] MEDS ORDERED: fentaNYL 100 MCG/2 ML INJECTION As Ordered ONE (13:13)
[2024-04-06] MEDS ORDERED: propofoL 200 MG/20 ML VIAL As Ordered ONE (13:15)
[2024-04-06] MEDS ORDERED: PHENYLephrine 500MCG 5ML (100MCG/ML) SYRINGE As Ordered ONE (13:15)
[2024-04-06] MEDS ORDERED: ePHEDrine SULFATE 25 MG/5 ML(5MG/ML) SYRINGE As Ordered ONE (13:15)
[2024-04-06] MEDS ORDERED: ONDANSETRON 4MG 2ML VIAL IV PRN (13:20)
[2024-04-06] MEDS ORDERED: oxyCODONE 5MG TAB PO PRN (13:20)
[2024-04-06] MEDS ORDERED: fentaNYL 100 MCG/2 ML INJECTION IV PRN (13:20)
[2024-04-06] MEDS: PIPERACILLIN/TAZOBACTAM SOD 4.5 GM in D5W MINI-BAG PLUS 50 ML IV SCH (14:23)
[2024-04-06] MEDS: LACTULOSE 20GM/30ML SYRUP UDC PO SCH (14:23)
[2024-04-06] MEDS: NS 1,000 ML IV SCH (14:26)
[2024-04-06] MEDS: NS 1,000 ML IV ONE (16:55)
[2024-04-06] MEDS: MIDODRINE 5 MG TAB PO SCH (17:22)
[2024-04-06] MEDS: LR 1,000 ML IV SCH (18:19)
[2024-04-06] MEDS: NOREPINEPHRINE 4MG IN D5 250ML 4 MG in IV 1 EA IV SCH (18:19)
[2024-04-06 23:33] LABS: HCV RNA QUANTITATION <15 NOT DETECTED IU/mL (NOT DETECTED); HCV RNA log10 <1.18 NOT DETECTED Log IU/mL (NOT DETECTED)
[2024-04-07] VITALS (93 sets, daily range): BP systolic 81–129; BP diastolic 44–73; TEMP 97.5–98.9; O2SAT 92–97
[2024-04-07 05:13] LABS: HEMATOCRIT 32.9 % (42.0-52.0); MEAN CORPUSCULAR HEMOGLOBIN 28.9 pg (27.0-33.0); MEAN CORPUSCULAR HGB CONC 33.4 g/dl (32.0-36.5); MEAN CORPUSCULAR VOLUME 86.6 fl (80.0-96.0); PLATELET COUNT, AUTOMATED 118 10^3/uL (150-450); WHITE BLOOD COUNT 27.8 10^3/uL (4.0-10.0)
[2024-04-07 05:30] LABS: CREATININE FOR GFR 3.56 MG/DL (0.70-1.30); GLOMERULAR FILTRATION RATE 17.8 (>42)
[2024-04-07 05:45] LABS: ATYPICAL LYMPH 1 % (0-5); LYMPHOCYTES 1 % (16-44); MONOCYTES 2 % (0-5); NEUTROPHILS 95 % (28-66); PLATELET ESTIMATE DECREASED (NORMAL)
[2024-04-07] MEDS ORDERED: HEPARIN 1,000UNITS/ML 10ML VIAL (FOR RADIOLOGY & DIALYSIS ONLY) IV PRN (06:00)
[2024-04-07] MEDS ORDERED: HEPARIN 1,000UNITS/ML 10ML VIAL (FOR RADIOLOGY & DIALYSIS ONLY) XX SCH (06:00)
[2024-04-07] MEDS ORDERED: LIDOCAINE 1% SDV 5ML VIAL SC PRN (06:00)
[2024-04-07] MEDS ORDERED: SODIUM CHLORIDE 0.9% 1000ML IV PRN (06:00)
[2024-04-07] MEDS: LR 1,000 ML IV SCH (09:58)
[2024-04-07] MEDS: NS 1,000 ML IV SCH (10:37)
[2024-04-07] MEDS: SODIUM CHLORIDE 0.9% 500 ML IV ONE (11:54)
[2024-04-07 11:58] LABS: CLOSTRIDIUM DIFFICILE PCR NEGATIVE (NEGATIVE)
[2024-04-07] MEDS: MIDODRINE 5 MG TAB PO SCH (12:39)
[2024-04-07] MEDS: cefTRIAXone SOD 2 GM in D5W MINI-BAG PLUS 50 ML IV SCH (16:37)
[2024-04-08] VITALS (43 sets, daily range): BP systolic 73–117; BP diastolic 47–63; TEMP 96.8–98.6; O2SAT 93–99
[2024-04-08 05:17] LABS: BASO % 0.1 % (0.0-1.0); EOS # 0.1 10^3/uL (0.0-0.5); EOS % 0.5 % (0.0-3.0); HEMATOCRIT 30.2 % (42.0-52.0); HEMOGLOBIN 10.2 g/dl (13.5-17.5); LYMPH # 0.6 10^3/uL (1.5-5.0); LYMPH % 3.3 % (24.0-44.0); MEAN CORPUSCULAR HEMOGLOBIN 28.9 pg (27.0-33.0); MEAN CORPUSCULAR HGB CONC 33.8 g/dl (32.0-36.5); MEAN CORPUSCULAR VOLUME 85.6 fl (80.0-96.0); MONO # 0.5 10^3/uL (0.0-0.8); MONO % 2.5 % (2.0-8.0); NEUTROPHILS # 17.8 10^3/uL (1.5-8.5); RED BLOOD COUNT 3.53 10^6/uL (4.30-6.10); WHITE BLOOD COUNT 19.2 10^3/uL (4.0-10.0)
[2024-04-08 05:42] LABS: PLATELET COUNT, AUTOMATED 98 10^3/uL (150-450)
[2024-04-08 05:53] LABS: CALCIUM LEVEL 6.7 MG/DL (8.3-10.6); CREATININE FOR GFR 4.37 MG/DL (0.70-1.30); POTASSIUM SERUM 4.1 MMOL/L (3.5-5.1)
[2024-04-08] MEDS ORDERED: HEPARIN 1,000UNITS/ML 10ML VIAL (FOR RADIOLOGY & DIALYSIS ONLY) IV PRN (09:25)
[2024-04-08] MEDS ORDERED: LIDOCAINE 1% SDV 5ML VIAL SC PRN (09:25)
[2024-04-08] MEDS ORDERED: SODIUM CHLORIDE 0.9% 1000ML IV PRN (09:25)
[2024-04-08] MEDS: ACETAMINOPHEN TAB 650MG DOSE (2X325MG) PO PRN (12:23)
[2024-04-08] MEDS: HEPARIN 1,000UNITS/ML 10ML VIAL (FOR RADIOLOGY & DIALYSIS ONLY) XX SCH (15:26)
[2024-04-08] MEDS ORDERED: LOPERAMIDE 2 MG CAPLET PO PRN (17:50)
[2024-04-09] VITALS (8 sets, daily range): BP systolic 90–136; BP diastolic 52–71; TEMP 97–97.9; O2SAT 96–97
[2024-04-09 06:17] LABS: BASO % 0.1 % (0.0-1.0); EOS # 0.1 10^3/uL (0.0-0.5); EOS % 0.4 % (0.0-3.0); HEMOGLOBIN 11.6 g/dl (13.5-17.5); LYMPH # 0.7 10^3/uL (1.5-5.0); LYMPH % 4.4 % (24.0-44.0); MEAN CORPUSCULAR HEMOGLOBIN 28.6 pg (27.0-33.0); MEAN CORPUSCULAR HGB CONC 33.1 g/dl (32.0-36.5); MEAN CORPUSCULAR VOLUME 86.4 fl (80.0-96.0); MONO # 0.4 10^3/uL (0.0-0.8); MONO % 2.6 % (2.0-8.0); NEUTROPHILS # 13.6 10^3/uL (1.5-8.5); NEUTROPHILS % 91.9 % (36.0-66.0); RED BLOOD COUNT 4.05 10^6/uL (4.30-6.10); WHITE BLOOD COUNT 14.8 10^3/uL (4.0-10.0)
[2024-04-09 06:18] LABS: PLATELET COUNT, AUTOMATED 97 10^3/uL (150-450)
[2024-04-09 06:41] LABS: ALBUMIN 1.3 G/DL (3.2-5.2); BILIRUBIN,TOTAL 2.3 MG/DL (0.3-1.2); CALCIUM LEVEL 6.9 MG/DL (8.3-10.6); CREATININE FOR GFR 3.49 MG/DL (0.70-1.30); GLOMERULAR FILTRATION RATE 18.2 (>42); MAGNESIUM LEVEL 1.9 MG/DL (1.8-2.4); POTASSIUM SERUM 4.2 MMOL/L (3.5-5.1); TOTAL PROTEIN 5.3 G/DL (5.7-8.2)
[2024-04-09] MEDS ORDERED: SODIUM CHLORIDE 0.9% 1000ML IV PRN (09:50)
[2024-04-09] MEDS ORDERED: HEPARIN 1,000UNITS/ML 10ML VIAL (FOR RADIOLOGY & DIALYSIS ONLY) XX SCH (09:50)
[2024-04-09] MEDS: HEPARIN 1,000UNITS/ML 10ML VIAL (FOR RADIOLOGY & DIALYSIS ONLY) IV PRN (13:26)
[2024-04-10 03:34] VITALS: BP 114/57; TEMP 97.1; O2SAT 97
[2024-04-10 07:30] LABS: BASO % 0.2 % (0.0-1.0); EOS % 0.3 % (0.0-3.0); HEMATOCRIT 34.3 % (42.0-52.0); HEMOGLOBIN 11.2 g/dl (13.5-17.5); LYMPH # 0.5 10^3/uL (1.5-5.0); LYMPH % 3.8 % (24.0-44.0); MEAN CORPUSCULAR HEMOGLOBIN 28.3 pg (27.0-33.0); MEAN CORPUSCULAR HGB CONC 32.7 g/dl (32.0-36.5); MEAN CORPUSCULAR VOLUME 86.6 fl (80.0-96.0); MONO # 0.4 10^3/uL (0.0-0.8); MONO % 3.3 % (2.0-8.0); NEUTROPHILS # 11.6 10^3/uL (1.5-8.5); NEUTROPHILS % 91.7 % (36.0-66.0); PLATELET COUNT, AUTOMATED 101 10^3/uL (150-450); RED BLOOD COUNT 3.96 10^6/uL (4.30-6.10); WHITE BLOOD COUNT 12.6 10^3/uL (4.0-10.0)
[2024-04-10 07:51] VITALS: BP 120/58; O2SAT 94
[2024-04-10 07:58] LABS: ALBUMIN 1.7 G/DL (3.2-5.2); BILIRUBIN,TOTAL 2.8 MG/DL (0.3-1.2); CALCIUM LEVEL 8.1 MG/DL (8.3-10.6); CREATININE FOR GFR 2.83 MG/DL (0.70-1.30); GLOMERULAR FILTRATION RATE 23.2 (>42); MAGNESIUM LEVEL 1.9 MG/DL (1.8-2.4); POTASSIUM SERUM 4.5 MMOL/L (3.5-5.1); TOTAL PROTEIN 5.7 G/DL (5.7-8.2)
[2024-04-10 11:22] VITALS: BP 111/59; TEMP 97.6; O2SAT 96
[2024-04-10] MEDS: FUROSEMIDE injection 250 MG in D5W 225 ML IV SCH (11:29)
[2024-04-10] MEDS ORDERED: FUROSEMIDE injection 250 MG in D5W 225 ML IV SCH (12:00)
[2024-04-10 16:27] VITALS: BP 120/58; TEMP 97; O2SAT 96
[2024-04-10 19:37] VITALS: BP 120/61; TEMP 97; O2SAT 97
[2024-04-10 23:40] VITALS: BP 118/56; TEMP 97.2; O2SAT 97
[2024-04-11] VITALS (8 sets, daily range): BP systolic 106–166; BP diastolic 51–61; TEMP 96.4–97; O2SAT 96–99
[2024-04-11 06:00] LABS: BASO % 0.1 % (0.0-1.0); EOS # 0.1 10^3/uL (0.0-0.5); EOS % 0.6 % (0.0-3.0); HEMATOCRIT 33.6 % (42.0-52.0); LYMPH # 0.6 10^3/uL (1.5-5.0); LYMPH % 5.6 % (24.0-44.0); MEAN CORPUSCULAR HEMOGLOBIN 28.4 pg (27.0-33.0); MEAN CORPUSCULAR HGB CONC 32.7 g/dl (32.0-36.5); MEAN CORPUSCULAR VOLUME 86.8 fl (80.0-96.0); MONO # 0.5 10^3/uL (0.0-0.8); MONO % 4.4 % (2.0-8.0); NEUTROPHILS # 9.1 10^3/uL (1.5-8.5); NEUTROPHILS % 88.7 % (36.0-66.0); PLATELET COUNT, AUTOMATED 104 10^3/uL (150-450); RED BLOOD COUNT 3.87 10^6/uL (4.30-6.10); WHITE BLOOD COUNT 10.2 10^3/uL (4.0-10.0)
[2024-04-11 06:23] LABS: ALBUMIN 1.6 G/DL (3.2-5.2); BILIRUBIN,TOTAL 2.8 MG/DL (0.3-1.2); CALCIUM LEVEL 7.9 MG/DL (8.3-10.6); CREATININE FOR GFR 3.67 MG/DL (0.70-1.30); GLOMERULAR FILTRATION RATE 17.2 (>42); MAGNESIUM LEVEL 1.9 MG/DL (1.8-2.4); POTASSIUM SERUM 4.3 MMOL/L (3.5-5.1); TOTAL PROTEIN 5.6 G/DL (5.7-8.2)
[2024-04-12] VITALS (7 sets, daily range): BP systolic 94–107; BP diastolic 47–59; TEMP 96.7–98.2; O2SAT 94–100
[2024-04-12] MEDS ORDERED: HEPARIN 1,000UNITS/ML 10ML VIAL (FOR RADIOLOGY & DIALYSIS ONLY) IV PRN (00:20)
[2024-04-12] MEDS ORDERED: SODIUM CHLORIDE 0.9% 1000ML IV PRN (00:20)
[2024-04-12 06:08] LABS: BASO % 0.1 % (0.0-1.0); EOS # 0.1 10^3/uL (0.0-0.5); EOS % 0.8 % (0.0-3.0); HEMATOCRIT 31.6 % (42.0-52.0); HEMOGLOBIN 10.6 g/dl (13.5-17.5); LYMPH # 0.5 10^3/uL (1.5-5.0); LYMPH % 5.7 % (24.0-44.0); MEAN CORPUSCULAR HGB CONC 33.5 g/dl (32.0-36.5); MEAN CORPUSCULAR VOLUME 86.6 fl (80.0-96.0); MONO # 0.4 10^3/uL (0.0-0.8); MONO % 4.7 % (2.0-8.0); NEUTROPHILS # 8.1 10^3/uL (1.5-8.5); NEUTROPHILS % 88.1 % (36.0-66.0); PLATELET COUNT, AUTOMATED 100 10^3/uL (150-450); RED BLOOD COUNT 3.65 10^6/uL (4.30-6.10); WHITE BLOOD COUNT 9.2 10^3/uL (4.0-10.0)
[2024-04-12 06:35] LABS: ALBUMIN 1.7 G/DL (3.2-5.2); BILIRUBIN,TOTAL 2.5 MG/DL (0.3-1.2); CALCIUM LEVEL 7.9 MG/DL (8.3-10.6); CREATININE FOR GFR 4.65 MG/DL (0.70-1.30); GLOMERULAR FILTRATION RATE 13.1 (>42); POTASSIUM SERUM 4.3 MMOL/L (3.5-5.1); TOTAL PROTEIN 5.1 G/DL (5.7-8.2)
[2024-04-12] MEDS ORDERED: LIDOCAINE 1% MDV 20ML VIAL As Ordered ONE (15:12)
[2024-04-12] MEDS ORDERED: MIDAZOLAM INJ 2MG/2ML VIAL As Ordered ONE (15:12)
[2024-04-12] MEDS ORDERED: HEPARIN 1,000UNITS/ML 10ML VIAL (FOR RADIOLOGY & DIALYSIS ONLY) As Ordered ONE (15:12)
[2024-04-12] MEDS: HEPARIN 1,000UNITS/ML 10ML VIAL (FOR RADIOLOGY & DIALYSIS ONLY) XX SCH (17:40)
[2024-04-13 03:26] VITALS: BP 100/52; TEMP 96.9; O2SAT 95
[2024-04-13 06:33] LABS: BASO % 0.1 % (0.0-1.0); EOS % 0.5 % (0.0-3.0); HEMATOCRIT 31.7 % (42.0-52.0); HEMOGLOBIN 10.5 g/dl (13.5-17.5); LYMPH # 0.5 10^3/uL (1.5-5.0); LYMPH % 6.2 % (24.0-44.0); MEAN CORPUSCULAR HGB CONC 33.1 g/dl (32.0-36.5); MEAN CORPUSCULAR VOLUME 87.6 fl (80.0-96.0); MONO # 0.4 10^3/uL (0.0-0.8); MONO % 4.7 % (2.0-8.0); NEUTROPHILS # 6.5 10^3/uL (1.5-8.5); RED BLOOD COUNT 3.62 10^6/uL (4.30-6.10); WHITE BLOOD COUNT 7.4 10^3/uL (4.0-10.0)
[2024-04-13 06:51] LABS: CREATININE FOR GFR 3.64 MG/DL (0.70-1.30); GLOMERULAR FILTRATION RATE 17.3 (>42); POTASSIUM SERUM 4.3 MMOL/L (3.5-5.1)
[2024-04-13 07:38] LABS: PLATELET COUNT, AUTOMATED 86 10^3/uL (150-450)
[2024-04-13 07:55] VITALS: BP 92/50; TEMP 97.2; O2SAT 96
[2024-04-13 12:12] VITALS: BP 108/55; TEMP 97; O2SAT 97
[2024-04-13 15:31] VITALS: BP 113/58; TEMP 96.4; O2SAT 94
[2024-04-13 19:18] VITALS: BP 102/50; TEMP 96.8; O2SAT 98
[2024-04-13] MEDS: MIRTAZAPINE 15 MG TAB PO SCH (20:32)
[2024-04-13 23:30] VITALS: BP 112/57; TEMP 97; O2SAT 96
[2024-04-14 04:00] VITALS: BP 116/59; TEMP 96.9; O2SAT 97
[2024-04-14 05:40] LABS: BASO % 0.3 % (0.0-1.0); EOS # 0.1 10^3/uL (0.0-0.5); EOS % 1.3 % (0.0-3.0); HEMOGLOBIN 10.7 g/dl (13.5-17.5); LYMPH # 0.6 10^3/uL (1.5-5.0); LYMPH % 7.7 % (24.0-44.0); MEAN CORPUSCULAR HEMOGLOBIN 29.2 pg (27.0-33.0); MEAN CORPUSCULAR HGB CONC 33.4 g/dl (32.0-36.5); MEAN CORPUSCULAR VOLUME 87.4 fl (80.0-96.0); MONO # 0.4 10^3/uL (0.0-0.8); MONO % 5.5 % (2.0-8.0); NEUTROPHILS # 6.8 10^3/uL (1.5-8.5); NEUTROPHILS % 84.8 % (36.0-66.0); PLATELET COUNT, AUTOMATED 107 10^3/uL (150-450); RED BLOOD COUNT 3.66 10^6/uL (4.30-6.10)
[2024-04-14] MEDS ORDERED: SODIUM CHLORIDE 0.9% 1000ML IV PRN (06:00)
[2024-04-14] MEDS ORDERED: HEPARIN 1,000UNITS/ML 10ML VIAL (FOR RADIOLOGY & DIALYSIS ONLY) XX SCH (06:00)
[2024-04-14] MEDS ORDERED: HEPARIN 1,000UNITS/ML 10ML VIAL (FOR RADIOLOGY & DIALYSIS ONLY) IV PRN (06:00)
[2024-04-14 06:02] LABS: CREATININE FOR GFR 4.61 MG/DL (0.70-1.30); GLOMERULAR FILTRATION RATE 13.2 (>42); POTASSIUM SERUM 4.2 MMOL/L (3.5-5.1)
[2024-04-14 07:35] VITALS: BP 117/56; TEMP 97; O2SAT 98
[2024-04-14 12:00] VITALS: BP 101/59; TEMP 97.2; O2SAT 96
[2024-04-14 17:50] VITALS: BP 102/56; TEMP 97.4; O2SAT 92
[2024-04-14 20:00] VITALS: BP 100/60; TEMP 97; O2SAT 99
[2024-04-15] MEDS ORDERED: HEPARIN SOD (PORCINE) 5000UNITS/ML 1ML VIAL/SYRINGE As Ordered ONE (08:23)
[2024-04-15] MEDS ORDERED: PANTOPRAZOLE 40MG TAB (PROTONIX) As Ordered ONE (08:23)
[2024-04-15] MEDS ORDERED: MIDODRINE 5 MG TAB As Ordered ONE (08:23)
[2024-04-15] MEDS ORDERED: INSULIN LISPRO (NovoLOG) PER UNIT As Ordered ONE (08:25)
[2024-04-15 13:15] VITALS: BP 106/56; TEMP 96.9; O2SAT 94
[2024-04-15] MEDS ORDERED: ONDANSETRON 4MG ORAL DISINTEGRATING TAB PO PRN (13:45)
[2024-04-15] MEDS ORDERED: ACETAMINOPHEN TAB 650MG DOSE (2X325MG) PO PRN (13:45)
[2024-04-15] MEDS ORDERED: FLEET ENEMA PR PRN (13:45)
[2024-04-15] MEDS ORDERED: BISACODYL 10MG SUPP PR PRN (13:45)
[2024-04-15 14:23] LABS: ALBUMIN 1.9 G/DL (3.2-5.2); CALCIUM LEVEL 8.4 MG/DL (8.3-10.6); CREATININE FOR GFR 4.67 MG/DL (0.70-1.30); MAGNESIUM LEVEL 2.1 MG/DL (1.8-2.4); PHOSPHORUS LEVEL 5.9 MG/DL (2.4-5.1); POTASSIUM SERUM 4.1 MMOL/L (3.5-5.1)
[2024-04-15 15:28] LABS: BASO % 0.4 % (0.0-1.0); EOS # 0.1 10^3/uL (0.0-0.5); EOS % 0.8 % (0.0-3.0); HEMATOCRIT 35.2 % (42.0-52.0); HEMOGLOBIN 11.8 g/dl (13.5-17.5); LYMPH # 0.6 10^3/uL (1.5-5.0); LYMPH % 7.8 % (24.0-44.0); MEAN CORPUSCULAR HEMOGLOBIN 29.2 pg (27.0-33.0); MEAN CORPUSCULAR HGB CONC 33.5 g/dl (32.0-36.5); MEAN CORPUSCULAR VOLUME 87.1 fl (80.0-96.0); MONO # 0.4 10^3/uL (0.0-0.8); MONO % 5.3 % (2.0-8.0); NEUTROPHILS # 6.6 10^3/uL (1.5-8.5); NEUTROPHILS % 85.4 % (36.0-66.0); RED BLOOD COUNT 4.04 10^6/uL (4.30-6.10); WHITE BLOOD COUNT 7.7 10^3/uL (4.0-10.0)
[2024-04-15 15:29] LABS: PLATELET COUNT, AUTOMATED 80 10^3/uL (150-450)
[2024-04-15] MEDS: LORazepam 2 MG/ML 1ML VIAL IV PRN (19:44)
[2024-04-16] MEDS: MORPHINE 2 MG/ML 1ML VIAL IV PRN (02:21)
[2024-04-16] MEDS: SCOPOLAMINE 1MG TRANSDERMAL PATCH TOP PRN (08:14)
[2024-04-17] MEDS: ATROPINE SULFATE 1% OPHTH SOLN 2ML BTL SL PRN (10:13)
[2024-04-18] MEDS: MORPHINE 2 MG/ML 1ML VIAL IV PRN (11:08)
== END 2024-04-18 12:05 | disposition expired | DRG 871 ==
LOC: M ED 07:46 → M ED INP 13:55 → M PCU 18:33 → M ICU 04-06 17:53 → M PCU 04-08 20:15
PROVIDERS: ADMIT Student in an Organized Health Care Education/Training Program; ATTEND Student in an Organized Health Care Education/Training Program
PROC: 0W9G3ZZ Drainage of Peritoneal Cavity, Percutaneous Approach (ICD-10-PCS; principal; 2024-04-04 12:30)
PROC: 02HV33Z Insertion of Infusion Device into Superior Vena Cava, Percutaneous Approach (ICD-10-PCS; 2024-04-05)
PROC: 0JH63XZ Insertion of Tunneled Vascular Access Device into Chest Subcutaneous Tissue and Fascia, Percutaneous Approach (ICD-10-PCS; 2024-04-05)
PROC: 0VB08ZX Excision of Prostate, Via Natural or Artificial Opening Endoscopic, Diagnostic (ICD-10-PCS; 2024-04-06)
PROC: 5A1D70Z Performance of Urinary Filtration, Intermittent, Less than 6 Hours Per Day (ICD-10-PCS; 2024-04-08)
PROC: 0W9G3ZZ Drainage of Peritoneal Cavity, Percutaneous Approach (ICD-10-PCS; 2024-04-11)
PROC: 02HV33Z Insertion of Infusion Device into Superior Vena Cava, Percutaneous Approach (ICD-10-PCS; 2024-04-12)
PROC: 0JH63XZ Insertion of Tunneled Vascular Access Device into Chest Subcutaneous Tissue and Fascia, Percutaneous Approach (ICD-10-PCS; 2024-04-12)
DX: A41.51 Sepsis due to Escherichia coli [E. coli] (principal); K76.7 Hepatorenal syndrome; N17.0 Acute kidney failure with tubular necrosis; R65.21 Severe sepsis with septic shock; N18.6 End stage renal disease; J96.01 Acute respiratory failure with hypoxia; K76.6 Portal hypertension; E87.20 Acidosis, unspecified; E87.1 Hypo-osmolality and hyponatremia; C79.51 Secondary malignant neoplasm of bone; D84.9 Immunodeficiency, unspecified; N13.0 Hydronephrosis with ureteropelvic junction obstruction; N39.0 Urinary tract infection, site not specified; I12.0 Hypertensive chronic kidney disease with stage 5 chronic kidney disease or end stage renal disease; E11.65 Type 2 diabetes mellitus with hyperglycemia; E11.22 Type 2 diabetes mellitus with diabetic chronic kidney disease; K70.31 Alcoholic cirrhosis of liver with ascites; C61 Malignant neoplasm of prostate; E03.9 Hypothyroidism, unspecified; D63.1 Anemia in chronic kidney disease; R59.9 Enlarged lymph nodes, unspecified; E87.5 Hyperkalemia; K59.00 Constipation, unspecified; R19.7 Diarrhea, unspecified; D69.6 Thrombocytopenia, unspecified; Z79.4 Long term (current) use of insulin; Z79.899 Other long term (current) drug therapy; B96.20 Unspecified Escherichia coli [E. coli] as the cause of diseases classified elsewhere; Z66 Do not resuscitate; F32.A Depression, unspecified; G47.00 Insomnia, unspecified; D35.00 Benign neoplasm of unspecified adrenal gland; Z51.5 Encounter for palliative care